=== PATIENT | female | born 1965 | race Caucasian/White ===

== ENCOUNTER → 2017-05-27 | Outpatient (CLI) | payer MEDICARE, BC ==
--- NOTE | 2017-05-28 09:43 | MR ---
EXAMINATION TYPE: MR brain wo/w con DATE OF EXAM: 05/27/2017 COMPARISON: NONE HISTORY: Multiple sclerosis TECHNIQUE: Multiplanar, multisequence images of the brain and brainstem is performed without and with utilizing 8 mL intravenous Gadavist gadolinium contrast. Demyelinating disease protocol with additional Sagitt al Flair sequence performed. FINDINGS: T2 Lesions Present : Yes Approximate Number of Lesions: 1 right cerebellar, at least 20 on the right as well as at least multi ple periventricular radially oriented white matter lesions, and at least 16 on the left as well as mu ltiple periventricular radially oriented white matter lesions. Locations Identified : Pericallosal, periventricular, juxtacortical, and infratentorial no lesions ar e seen within the brainstem or proximal visualized spinal cord. Size of Reference Lesion(s): 1. Right frontal lobe: 1.0 cm x 0.8 cm x 0.7 cm on axial series 501 image 24 and sagittal i series 60 1 image 20 2. Left frontal lobe: 0.8 x 0.6 cm x 0.9 cm on axial series 501 image 19 and sagittal series 601 imag e 10 Enhancing Lesion(s) Present: No T1 Hypointense Lesion(s) Present: Yes Diffusion weighted images demonstrate no evidence of a recent infarct or other diffusion abnormality. There is no worrisome extra-axial fluid collection. The ventricular system and cisternal spaces ar e normal in size and appearance. The brain volume is age appropriate. Midline structures demonstrate normal morphology. The craniocervical junction appears within normal limits. Post contrast images demonstrate no abnormal enhancement. The dural venous sinuses appear pa tent. The visualized sinuses are clear and the globes are intact. IMPRESSION: Numerous pericallosal, periventricular, juxtacortical, and singular infratentorial white matter plaqu es, in keeping with the patient's history of multiple sclerosis. No enhancing lesions or lesions rest ricting diffusion are seen to indicate active demyelination.
--- NOTE | 2017-05-28 09:51 | MR ---
EXAMINATION TYPE: MR thoracic spine wo con DATE OF EXAM: 05/27/2017 COMPARISON: NONE HISTORY: Multiple sclerosis TECHNIQUE: Multiplanar, multisequence images of the thoracic spine were acquired without intravenous contrast. D iffusion weighted imaging was performed. FINDINGS: The exam is somewhat limited secondary to patient motion. Right paracentral disc herniation is seen at T8-T9 effacing the ventral subarachnoid space and impres sing upon the thoracic cord. No abnormal cord signal is appreciated. There is resultant mild spinal c anal stenosis and mild neural foraminal narrowing. At T12-L1 there is a left paracentral disc herniat ion creating mild spinal canal stenosis without neural foraminal narrowing. The remaining intervertebral discs of the thoracic spine maintain normal hydration with no evidence o f degenerative disc disease or focal herniation. The thoracic cord maintains normal signal throughout without evidence of T2 hyperintense plaques in t his patient with a history of multiple sclerosis. Bone marrow signal is unremarkable other than small T6 and T7 subcentimeter T2/T1 hyperintense vertebral body hemangiomas. IMPRESSION: 1. Small right paracentral disc herniation at T8-T9 creating mild spinal canal stenosis and impressio n upon the spinal cord without abnormal spinal cord signal to suggest edema or myelomalacia. 2. Left paracentral disc herniation at T12-L1 creating mild spinal canal stenosis without neural fora pedro narrowing. 3. No abnormal spinal cord signal to suggest demyelinating lesion.
== END | disposition home or self-care (01) ==
LOC: RADMRIMAIN 11:59
PROVIDERS: ATTEND Psychiatry & Neurology Neurology
DX: M48.04 Spinal stenosis, thoracic region (principal); M51.25 Other intervertebral disc displacement, thoracolumbar region; M99.73 Connective tissue and disc stenosis of intervertebral foramina of lumbar region; R93.0 Abnormal findings on diagnostic imaging of skull and head, not elsewhere classified; G35 Multiple sclerosis
CPT/HCPCS: 70553; 72146; A9581

== ENCOUNTER → 2017-08-15 | Outpatient (CLI) | payer MEDICARE, BC ==
[2017-08-15 09:51] LABS: Basophils # (A) 0.1 k/uL (0-0.2); Basophils % (A) 2 %; CH 28.8; CHCM 32.4; Eosinophils # (A) 0.4 k/uL (0-0.7); Eosinophils % (A) 7 %; HCT 43.6 % (34.0-46.0); HGB 13.8 gm/dL (11.4-16.0); Luc # (Auto) 0.12; Luc % (Auto) 2; Lymphocytes # (A) 1.5 k/uL (1.0-4.8); Lymphocytes % (A) 29 %; MCH 28.3 pg (25.0-35.0); MCHC 31.7 g/dL (31.0-37.0); MCV 89.2 fL (80.0-100.0); Mean Platelet Volume 7.3; Monocytes # (A) 0.4 k/uL (0-1.0); Monocytes % (A) 7 %; Neutrophils # (A) 2.7 k/uL (1.3-7.7); Neutrophils % (A) 53 %; RBC 4.89 m/uL (3.80-5.40); RDW 14.3 % (11.5-15.5); WBC 5.1 k/uL (3.8-10.6); WBC (Perox) 5.02
[2017-08-15 10:26] LABS: ALT 38 U/L (9-52); AST 23 U/L (14-36)
== END | disposition home or self-care (01) ==
LOC: LABWHC1 08:37
PROVIDERS: ATTEND Psychiatry & Neurology Neurology
DX: G35 Multiple sclerosis (principal)
CPT/HCPCS: 36415; 84450; 84460; 85025; 86480

== ENCOUNTER → 2017-10-22 | Outpatient (CLI) | payer MEDICARE, BC ==
--- NOTE | 2017-10-22 12:09 | BD ---
EXAMINATION TYPE: MG DEXA axial skeleton. DATE OF EXAM: 10/22/2017 COMPARISON: 2001 CLINICAL HISTORY: Postmenopausal female. Osteoporosis screening. Height: 5'6 Weight: 195 FRAX RISK QUESTIONS: Alcohol (3 or more units per day): no Family History (Parent hip fracture): no Glucocorticoids (More than 3mos): no (Ex: prednisone, prednisolone, methylprednisolone, dexamethasone, and hydrocortisone). History of Fracture in Adulthood: no Secondary Osteoporosis: 1. Type 1 Diabetes: no 2. Hyperthyroidism: no 3. Menopause before 45: no 4. Malnutrition: no 5. Chronic liver disease: no Rheumatoid Arthritis: no Current Tobacco Use: no RISK FACTORS HISTORY OF: Active: Diet low in dairy products/other sources of calcium: Postmenopausal woman: Frequent falls: MEDICATIONS: Prednisone or other steroids: How Long: back to back 3 moths ago Thyroid Medications: Which medication: Synthroid How Lon years Additional Medications: bladder, spasms, depression, cholesterol, liness, albuterol Additional History: pt has MS EXAM MEASUREMENTS: Bone mineral densitometry was performed using the [employer] System. Bone mineral density as measured about the Lumbar spine is: ----- L1-L4(G/cm2): 1.145 T Score Values are as follows: ----- L2: -0.1 ----- L3: -0.1 ----- L4: -0.9 ----- L1-L4: -0.3 Bone mineral density has: Decreased -10.8% since study of: 07/07/2002 Bone mineral density about the R hip (g/cm2): 0.893 Bone mineral density about the L hip (g/cm2): 0.902 T Score values are as follows: -----R Neck: -1.0 -----L Neck: -1.0 -----R Total: -0.6 -----L Total: -0.7 Bone mineral density has: Decreased -7.4% since study of: 07/07/2002 IMPRESSION: Normal (Values between +1 and -1 indicate normal bone mass). Note values approach osteopenia for the bilateral hips. Consider repeating this study in 5 years or sooner if there is some new clinical lico cation. NOTE: T-SCORE=SD OF THE YOUNG ADULT MEAN.
== END | disposition home or self-care (01) ==
LOC: RADBDWWP 10:37
PROVIDERS: ATTEND Obstetrics & Gynecology
DX: Z13.820 Encounter for screening for osteoporosis (principal)
CPT/HCPCS: 77080

== ENCOUNTER → 2018-02-06 | Outpatient (CLI) | payer MEDICARE, BC ==
[2018-02-06 08:54] LABS: ALT 38 U/L (9-52); AST 26 U/L (14-36); Blood Urea Nitrogen 11 mg/dL (7-17); Uric Acid 5.5 mg/dL (3.7-7.4)
== END | disposition home or self-care (01) ==
LOC: LABWHC1 08:29
PROVIDERS: ATTEND Podiatrist
DX: M10.9 Gout, unspecified (principal)
CPT/HCPCS: 36415; 82565; 84450; 84460; 84520; 84550

== ENCOUNTER → 2018-02-25 | Outpatient (CLI) | payer MEDICARE, BC ==
[2018-02-25 09:37] LABS: Blood Urea Nitrogen 16 mg/dL (7-17)
[2018-02-25 16:39] LABS: Rheumatoid Factor 8 IU/mL (0-15)
[2018-02-26 11:22] LABS: ANA Pattern Speckled
[2018-02-26 12:20] LABS: HLA B27 POSITIVE
== END | disposition home or self-care (01) ==
LOC: LABWHC1 08:39
PROVIDERS: ATTEND Psychiatry & Neurology Neurology
DX: M10.9 Gout, unspecified (principal); M06.9 Rheumatoid arthritis, unspecified; G35 Multiple sclerosis; Z13.89 Encounter for screening for other disorder
CPT/HCPCS: 36415; 82565; 84520; 84550; 85652; 86038; 86039; 86431; 86812

== ENCOUNTER → 2018-02-27 | Outpatient (CLI) | payer MEDICARE, BC ==
[2018-02-27 11:51] LABS: Creatinine 24 Hour,Urine 797.5 mg/24hr (800.0-1800.0)
== END | disposition home or self-care (01) ==
LOC: LABWHC1 09:26
PROVIDERS: ATTEND Psychiatry & Neurology Neurology
DX: G35 Multiple sclerosis (principal); Z13.89 Encounter for screening for other disorder
CPT/HCPCS: 36415; 82575

== ENCOUNTER 2018-03-26 10:01 | Emergency (ER) | payer MEDICARE, BC ==
[2018-03-26 10:16] VITALS: RESP 18
--- NOTE | 2018-03-26 10:33 | ED ---
General Adult HPI - General Chief complaint: Fall Stated complaint: Fall Time Seen by Provider: 03/26/18 10:10 Source: patient, RN notes reviewed Mode of arrival: ambulatory Limitations: no limitations - History of Present Illness Initial comments: This is a 52-year-old female who presents to the emergency room with a past medical history significant for rheumatoid arthritis and multiple sclerosis. Patient comes in today because she fell yesterday and hit her right jaw on coffee table. Patient states a few hours after that she had some double vision that lasted about 1-1/2 hours. Patient states today she has a diffuse headache and some nausea. Patient denies any new numbness or weakness. Patient states she has some neck pain it's bilaterally. Is not centrally located. Patient denies any recent fever or chills. Patient denies any chest pain difficulty breathing or shortness of breath. Patient denies any other injury. Patient denies any blurred vision or double vision today. Patient denies any . Patient states she often does get headaches but she was concerned about the double vision with the headache today. - Related Data Home Medications Medication Instructions Recorded Confirmed Ampyra Er 10 mg PO DAILY 03/26/18 03/26/18 Calcium Carbonate [Calcium] 600 mg PO DAILY 03/26/18 03/26/18 Cholecalciferol [Vitamin D3] 1,000 unit PO DAILY 03/26/18 03/26/18 Cinnamon Bark [Cinnamon] 500 mg PO DAILY 03/26/18 03/26/18 Ezetimibe [Zetia] 10 mg PO DAILY 03/26/18 03/26/18 Fluticasone/Salmeterol [Advair 1 inhalation PO BID 03/26/18 03/26/18 250-50 Diskus] Levothyroxine Sodium 25 mcg PO DAILY 03/26/18 03/26/18 Linaclotide [Linzess] 290 mcg PO DAILY 03/26/18 03/26/18 Magnesium 200 mg PO DAILY 03/26/18 03/26/18 Sertraline [Zoloft] 50 mg PO DAILY 03/26/18 03/26/18 Teriflunomide [Aubagio] 7 mg PO DAILY 03/26/18 03/26/18 Tolterodine ER [Detrol LA] 4 mg PO DAILY 03/26/18 03/26/18 Allergies Allergy/AdvReac Type Severity Reaction Status Date / Time oxybutynin [From Ditropan] Allergy Rash/Hives Verified 03/26/18 10:41 Penicillins Allergy Anaphylaxis Verified 03/26/18 10:40 propranolol [From Inderal LA] Allergy Rash/Hives Verified 03/26/18 10:40 pseudoephedrine Allergy Anaphylaxis Verified 03/26/18 10:40 [From Sudafed] sulfamethoxazole Allergy Rash/Hives Verified 03/26/18 10:41 [From Bactrim] trimethoprim [From Bactrim] Allergy Rash/Hives Verified 03/26/18 10:41 Review of Systems ROS Statement: Those systems with pertinent positive or pertinent negative responses have been documented in the HPI. ROS Other: All systems not noted in ROS Statement are negative. Past Medical History Past Medical History: Rheumatoid Arthritis (RA) Additional Past Medical History / Comment(s): ms History of Any Multi-Drug Resistant Organisms: None Reported Past Surgical History: Cholecystectomy, Uterine Ablation Additional Past Surgical History / Comment(s): d & c Past Psychological History: Anxiety Smoking Status: Never smoker Past Alcohol Use History: None Reported Past Drug Use History: None Reported General Exam - General Exam Comments Initial Comments: GENERAL: Patient is well-developed and well-nourished. Patient is nontoxic and well- hydrated and is in mild distress. ENT: Neck is soft and supple. No significant lymphadenopathy is noted. Oropharynx is clear. Moist mucous membranes. Neck has full range of motion without eliciting any pain. Patient did have some tenderness to the paraspinous muscles of the neck. No cervical spine tenderness. EYES: The sclera were anicteric and conjunctiva were pink and moist. Extraocular movements were intact and pupils were equal round and reactive to light. Eyelids were unremarkable. PULMONARY: Unlabored respirations. Good breath sounds bilaterally. No audible rales rhonchi or wheezing was noted. CARDIOVASCULAR: There is a regular rate and rhythm without any murmurs gallops or rubs. ABDOMEN: Soft and nontender with normal bowel sounds. SKIN: Skin is clear with no lesions or rashes and otherwise unremarkable. NEUROLOGIC Patient is alert and oriented x3. Cranial nerves II through XII are grossly intact. Motor and sensory are also intact. Normal speech, volume and content. Symmetrical smile. MUSCULOSKELETAL: Normal extremities with adequate strength and full range of motion. No lower extremity swelling or edema. No calf tenderness. LYMPHATICS: No significant lymphadenopathy is noted PSYCHIATRIC: Normal psychiatric evaluation. Normal interpersonal interactions appears functionally intact in deals appropriately with others. No signs of depression. No signs of anxiety. Limitations: no limitations Course Vital Signs 03/26/18 10:11 Temperature 98.3 F Pulse Rate 82 Respiratory 18 Rate Blood Pressure 152/79 O2 Sat by Pulse 100 Oximetry Medical Decision Making - Medical Decision Making CT of the brain and C-spine showed no acute abnormality. Patient did not want anything for her headache. Disposition Clinical Impression: Closed head injury Disposition: HOME SELF-CARE Condition: Good Instructions: Head Injury (ED) Is patient prescribed a controlled substance at d/c from ED?: No Referrals: Felipe Cantu DO [Primary Care Provider] - 1-2 days Time of Disposition: 11:52
--- NOTE | 2018-03-26 11:28 | CT ---
EXAMINATION TYPE: CT brain cspine wo con DATE OF EXAM: 03/26/2018 COMPARISON: MR dated 05/27/2017 HISTORY: Fall, bruising under chin, pain, Rt jaw. Head and neck pain. CT DLP: 1395.5 mGycm. Automated Exposure Control for Dose Reduction was Utilized. TECHNIQUE: CT scan of the head and cervical spine are performed without contrast. FINDINGS: There is no acute intracranial hemorrhage, mass effect, or midline shift identified. Foc al area of hypoattenuation is seen within the right frontal lobe however this corresponds to a white matter lesion is seen on the prior MRI dated 05/27/2017. Other scattered areas of hypoattenuation with in the pericallosal and periventricular white matter representing known underlying multiple sclerosis and demyelinating disease. Vogel-white matter interface is overall maintained with no new gross evide nce of acute territorial infarct. The ventricles and sulci are within normal limits in size. The alfonso bes are intact and the visualized sinuses are clear. Cervical spine is visualized in its entirety from C1 through upper thoracic levels and demonstrates s atisfactory alignment without evidence of acute fracture or dislocation. Prevertebral soft tissue ap pears within normal limits. The C1-C2 articulation is unremarkable. Mild multilevel degenerative di sc disease is seen. No gross evidence of spinal canal stenosis although disc osteophyte complex at C6 -C7 is seen that minimally narrows the ventral subarachnoid space. IMPRESSION: 1. There is no acute fracture or dislocation evident in the cervical spine. Mild multilevel degenerat jamar disc disease. 2. No acute intracranial hemorrhage, mass effect, or midline shift is seen. 3. White matter changes including with the patient's history of multiple sclerosis as seen on the chris or MR dated 05/27/2017.
[2018-03-26 12:12] VITALS: BP 145/83; PULSE 78; TEMP 98.2
== END 2018-03-26 12:05 | disposition home or self-care (01) ==
LOC: EC 10:01
DX: S09.90XA Unspecified injury of head, initial encounter (principal); M54.2 Cervicalgia; R11.0 Nausea; M06.9 Rheumatoid arthritis, unspecified; G35 Multiple sclerosis; F41.9 Anxiety disorder, unspecified; Z90.49 Acquired absence of other specified parts of digestive tract; Z98.890 Other specified postprocedural states; Z79.51 Long term (current) use of inhaled steroids; Z79.899 Other long term (current) drug therapy; Z88.0 Allergy status to penicillin; Z88.1 Allergy status to other antibiotic agents; Z88.2 Allergy status to sulfonamides; Z88.8 Allergy status to other drugs, medicaments and biological substances; W01.190A Fall on same level from slipping, tripping and stumbling with subsequent striking against furniture, initial encounter
CPT/HCPCS: 70450; 72125; 99283

== ENCOUNTER → 2018-06-08 | Outpatient (CLI) | payer MEDICARE, BC ==
[2018-06-08 10:19] LABS: C Reactive Protein 5.1 mg/L (<10.0)
== END | disposition home or self-care (01) ==
LOC: LABWHC1 08:49
PROVIDERS: ATTEND Internal Medicine Rheumatology
DX: E78.5 Hyperlipidemia, unspecified (principal); M12.9 Arthropathy, unspecified; R76.8 Other specified abnormal immunological findings in serum; Z15.89 Genetic susceptibility to other disease
CPT/HCPCS: 36415; 80061; 85652; 86140; 86431

== ENCOUNTER → 2018-09-25 | Outpatient (CLI) | payer MEDICARE, BC ==
--- NOTE | 2018-10-01 15:46 | MM ---
Reason for exam: screening (asymptomatic). Last mammogram was performed 1 year and 3 months ago. History: Family history of breast cancer in grandmother. Cyst aspiration of the left breast, August 06, 2011. MG 3D Screening Mammo W/Cad Bilateral CC and MLO view(s) were taken. Prior study comparison: July 10, 2017, bilateral MG 3d screening mammo w/cad. January 17, 2016, bilateral MG screening mammo w CAD. The breast tissue is extremely dense which could obscure a lesion on mammography. There is a new 3 mm group of calcifications in the lower outer quadrant of the left breast at middle depth. ASSESSMENT: Incomplete: need additional imaging evaluation, BI-RAD 0 RECOMMENDATION: Special view mammogram of the left breast.
== END | disposition home or self-care (01) ==
LOC: RADMAMWWP 13:25
PROVIDERS: ATTEND Obstetrics & Gynecology
DX: Z12.31 Encounter for screening mammogram for malignant neoplasm of breast (principal); Z80.3 Family history of malignant neoplasm of breast
CPT/HCPCS: 77063; 77067

== ENCOUNTER → 2018-10-12 | Outpatient (CLI) | payer MEDICARE, BC ==
--- NOTE | 2018-10-13 09:39 | MM ---
Reason for exam: additional evaluation requested from abnormal screening. Last mammogram was performed 1 month ago. History: Family history of breast cancer in grandmother. Cyst aspiration of the left breast, August 06, 2011. Physical Findings: Nurse Summary: 1cm nodule in the left breast at 11 o'clock (nurse mj). MG 3D Work Up W/Cad LT CC with magnification, ML with magnification, and ML view(s) were taken of the left breast. Prior study comparison: September 25, 2018, bilateral MG 3d screening mammo w/cad. July 10, 2017, bilateral MG 3d screening mammo w/cad. The breast tissue is heterogeneously dense. This may lower the sensitivity of mammography. Somewhat rounded calcifications left breast. 6 month follow up recommended. These results were verbally communicated with the patient and result sheet given to the patient on 10/12/18. ASSESSMENT: Incomplete: need additional imaging evaluation, BI-RAD 0 RECOMMENDATION: Ultrasound of the left breast. Manage patient on a clinical basis.
--- NOTE | 2018-10-13 09:40 | USB ---
Reason for exam: additional evaluation requested from abnormal screening. History: Family history of breast cancer in grandmother. Cyst aspiration of the left breast, August 06, 2011. US Breast Workup Limited LT Left limited breast ultrasound including focal area of concern, retroareolar and axilla demonstrates no cystic or solid lesion seen. These results were verbally communicated with the patient and result sheet given to the patient on 10/12/18. ASSESSMENT: Probably benign, BI-RAD 3 RECOMMENDATION: Follow-up diagnostic mammogram of the left breast in 6 months.
== END | disposition home or self-care (01) ==
LOC: RADMAMWWP 13:28
PROVIDERS: ATTEND Obstetrics & Gynecology
DX: R92.8 Other abnormal and inconclusive findings on diagnostic imaging of breast (principal)
CPT/HCPCS: 77065; 76642; G0279; 77061

== ENCOUNTER → 2019-02-24 | Outpatient (CLI) | payer MEDICARE, BC ==
[2019-02-24 09:40] LABS: Basophils # (A) 0.1 k/uL (0-0.2); Basophils % (A) 2 %; Eosinophils # (A) 0.2 k/uL (0-0.7); Eosinophils % (A) 4 %; HCT 40.3 % (34.0-46.0); HGB 13.1 gm/dL (11.4-16.0); Lymphocytes % (A) 37 %; MCH 28.4 pg (25.0-35.0); MCHC 32.6 g/dL (31.0-37.0); MCV 87.2 fL (80.0-100.0); Mean Platelet Volume 7.3; Monocytes # (A) 0.4 k/uL (0-1.0); Monocytes % (A) 8 %; Neutrophils # (A) 2.6 k/uL (1.3-7.7); Neutrophils % (A) 48 %; Platelet Count 273 k/uL (150-450); RBC 4.63 m/uL (3.80-5.40); RDW 14.6 % (11.5-15.5); WBC 5.4 k/uL (3.8-10.6)
== END | disposition home or self-care (01) ==
LOC: LABWHC1 08:32
PROVIDERS: ATTEND Psychiatry & Neurology Neurology
DX: G35 Multiple sclerosis (principal)
CPT/HCPCS: 36415; 85025

== ENCOUNTER → 2019-04-12 | Outpatient (CLI) | payer MEDICARE, BC ==
--- NOTE | 2019-04-13 09:13 | MM ---
Reason for exam: follow-up at short interval from prior study. Last mammogram was performed 6 months ago. History: Patient is postmenopausal. Family history of premenopausal breast cancer in maternal grandmother at age 48. Cyst aspiration of the left breast, August 06, 2011. Physical Findings: Nurse did not find any significant physical abnormalities on exam. MG 3D Diag Mammo W/Cad LT CC and MLO view(s) were taken of the left breast. Prior study comparison: October 12, 2018, left breast MG 3d work up w/cad LT. September 25, 2018, bilateral MG 3d screening mammo w/cad. The breast tissue is heterogeneously dense. This may lower the sensitivity of mammography. There are benign appearing coarse calcifications in the left breast at 6 o'clock. No significant new findings when compared with prior studies. ASSESSMENT: Benign, BI-RAD 2 RECOMMENDATION: Return to routine screening mammogram schedule for both breasts.
== END | disposition home or self-care (01) ==
LOC: RADMAMWWP 08:55
PROVIDERS: ATTEND Family Medicine
DX: R92.1 Mammographic calcification found on diagnostic imaging of breast (principal)
CPT/HCPCS: 77065; G0279; 77061

== ENCOUNTER → 2019-06-30 | Outpatient (CLI) | payer MEDICARE, BC ==
[2019-06-30 14:01] LABS: Basophils # (A) 0.1 k/uL (0-0.2); Basophils % (A) 2 %; Eosinophils # (A) 0.2 k/uL (0-0.7); Eosinophils % (A) 3 %; HCT 43.9 % (34.0-46.0); HGB 13.8 gm/dL (11.4-16.0); Lymphocytes # (A) 2.4 k/uL (1.0-4.8); Lymphocytes % (A) 37 %; MCH 28.4 pg (25.0-35.0); MCHC 31.5 g/dL (31.0-37.0); MCV 89.9 fL (80.0-100.0); Mean Platelet Volume 6.9; Monocytes # (A) 0.5 k/uL (0-1.0); Monocytes % (A) 7 %; Neutrophils % (A) 48 %; Platelet Count 302 k/uL (150-450); RBC 4.88 m/uL (3.80-5.40); WBC 6.3 k/uL (3.8-10.6)
[2019-06-30 18:36] LABS: ALT 29 U/L (8-44); AST 22 U/L (13-35)
== END | disposition home or self-care (01) ==
LOC: LABWHC1 11:22
PROVIDERS: ATTEND Psychiatry & Neurology Neurology
DX: G35 Multiple sclerosis (principal)
CPT/HCPCS: 36415; 84450; 84460; 85025

== ENCOUNTER → 2019-09-02 | Outpatient (CLI) | payer MEDICARE, BC ==
--- NOTE | 2019-09-02 14:47 | MR ---
EXAMINATION TYPE: MR brain wo con DATE OF EXAM: 09/02/2019 COMPARISON: MRI brain May 27, 2017 HISTORY: MS relapse TECHNIQUE: Multiplanar, multisequence imaging of the brain and brainstem is performed without IV cont rast. Demyelinating disease protocol. FINDINGS: There is redemonstration of T2 hyperintense lesion somewhat confluent in appearance with p rominent periventricular levels. For reference posterior left frontal coronal radiata lesion axial im age 20 and sagittal image 13 measures 8 x 5 x 8 mm not significantly changed in size or appearance fr om prior MRI. There is also stable high right frontal 8 x 10 x 6 mm lesion axial image 25 and sagitta l image 23. Diffusion weighted images demonstrate no evidence of a recent infarct or other diffusion abnormality. There is no worrisome extra-axial fluid collection. The ventricular system and cisternal spaces are normal in size and appearance. The brain volume is age appropriate. Midline structures demonstrate normal morphology. The craniocervical junction appears within normal limits. Normal vascular flow voids are present. The visualized sinuses are clear and the globes are e longated by artifact similar to prior. IMPRESSION: Moderate nonspecific white matter changes with only appreciated change is less well-visua lized possible right cerebellar lesion. No definitive new lesions seen.
--- NOTE | 2019-09-02 14:53 | MR ---
EXAMINATION TYPE: MR thoracic spine wo con DATE OF EXAM: 09/02/2019 COMPARISON: MRI thoracic spine May 27, 2017 HISTORY: MS relapse TECHNIQUE: Multiplanar, multisequence imaging of thoracic spine is performed without contrast demyeli nating disease protocol. FINDINGS: Spinal cord redemonstrates normal course and signal as it courses the thoracic spine. There is stable slightly more prominent thickening or AP enlargement lower thoracic level presumed normal variant. Bone marrow signal intensity is preserved. Vertebral body heights and alignment are satisfac tory. Mild multilevel anterior spurring redemonstrated. There is persistent right paracentral disc he rniation effacing anterolateral thecal sac sagittal image 9 at T8-T9 level, this encroaches along ant erolateral margin of spinal cord axial image 20 similar to prior. There is additional left paracentra l posterior disc herniation effacing the anterior thecal sac at T12-L1 level sagittal image 8 and axi al image 3 not significant change from prior. Review of the axial images shows no new significant disc herniations or definitive new areas of abnor mal cord signal. There is suspected thin-walled roughly 1 cm cyst or cystic lesion posterior right he patic lobe axial image 8 better seen on current study versus prior. IMPRESSION: No evidence of demyelinating disease involvement in the thoracic spinal cord. Stable dis c herniations T8-T9 and T12-L1 levels noted.
== END | disposition home or self-care (01) ==
LOC: RADMRIMAIN 13:12
PROVIDERS: ATTEND Psychiatry & Neurology Neurology
DX: G35 Multiple sclerosis (principal)
CPT/HCPCS: 70551; 72146

== ENCOUNTER → 2019-09-29 | Outpatient (CLI) | payer MEDICARE, BC ==
[2019-09-29 09:10] LABS: Basophils # (A) 0.1 k/uL (0-0.2); Basophils % (A) 2 %; Eosinophils # (A) 0.2 k/uL (0-0.7); Eosinophils % (A) 3 %; HCT 44.3 % (34.0-46.0); HGB 14.5 gm/dL (11.4-16.0); Lymphocytes # (A) 1.6 k/uL (1.0-4.8); Lymphocytes % (A) 29 %; MCHC 32.7 g/dL (31.0-37.0); MCV 88.8 fL (80.0-100.0); Mean Platelet Volume 7.6; Monocytes # (A) 0.3 k/uL (0-1.0); Monocytes % (A) 6 %; Neutrophils # (A) 3.2 k/uL (1.3-7.7); Neutrophils % (A) 58 %; Platelet Count 262 k/uL (150-450); RBC 4.99 m/uL (3.80-5.40); RDW 12.7 % (11.5-15.5); WBC 5.6 k/uL (3.8-10.6)
[2019-09-29 16:38] LABS: ALT 35 U/L (8-44); AST 23 U/L (13-35)
== END | disposition home or self-care (01) ==
LOC: LABWHC1 08:30
PROVIDERS: ATTEND Psychiatry & Neurology Neurology
DX: G35 Multiple sclerosis (principal)
CPT/HCPCS: 36415; 84450; 84460; 85025

== ENCOUNTER → 2020-02-14 | Outpatient (CLI) | payer MEDICARE, BC ==
[2020-02-14 11:12] LABS: Basophils # (A) 0.1 k/uL (0-0.2); Basophils % (A) 1 %; Eosinophils # (A) 0.1 k/uL (0-0.7); Eosinophils % (A) 2 %; HCT 43.6 % (34.0-46.0); HGB 13.6 gm/dL (11.4-16.0); Lymphocytes # (A) 1.9 k/uL (1.0-4.8); Lymphocytes % (A) 34 %; MCH 27.9 pg (25.0-35.0); MCHC 31.3 g/dL (31.0-37.0); MCV 89.1 fL (80.0-100.0); Mean Platelet Volume 7.2; Monocytes # (A) 0.3 k/uL (0-1.0); Monocytes % (A) 5 %; Neutrophils % (A) 56 %; Platelet Count 300 k/uL (150-450); RDW 12.8 % (11.5-15.5); WBC 5.4 k/uL (3.8-10.6)
[2020-02-14 11:25] LABS: Appearance,Urine Clear (Clear); Bilirubin,Urine Negative (Negative); Blood,Urine Negative (Negative); Color,Urine Light Yellow; Glucose,Urine (UA) Negative (Negative); Ketones,Urine Negative (Negative); Leukocyte Esterase,Urine Small (Negative); Mucus,Urine Rare /hpf; Nitrite,Urine Negative (Negative); Protein,Urine Negative (Negative); RBC,Urine 1 /hpf (0-5); Specific Gravity,Urine 1.013 (1.001-1.035); Squamous Epithelial Cell,Urine 1 /hpf (0-4); Urobilinogen,Urine <2.0 mg/dL (<2.0); WBC,Urine 2 /hpf (0-5)
[2020-02-14 17:22] LABS: Albumin 4.9 g/dL (3.80-4.90); Albumin/Globulin Ratio 2.33 (1.60-3.17); Anion Gap 7.6 mmol/L (4.00-12.00); BUN/Creat Ratio 24.29 Ratio (12.00-20.00); Calcium 9.7 mg/dL (8.7-10.3); Carbon Dioxide 29.4 mmol/L (21.6-31.8); Globulin 2.1 g/dL (1.6-3.3); Non-African American GFR(CKD) 97.5 (60.0-200.0); Potassium 4.5 mmol/L (3.5-5.5); Total Bilirubin 0.3 mg/dL (0.2-1.2)
[2020-02-14 20:44] LABS: Hepatitis B Surface AB- Quant 3.5 mIU/mL; Hepatitis B Surface Antibody Non-Reactive (Non-Reactive); Hepatitis B Surface Antigen Non-Reactive (Non-Reactive)
== END | disposition home or self-care (01) ==
LOC: LABWHC1 09:24
PROVIDERS: ATTEND Psychiatry & Neurology Neurology
DX: Z51.81 Encounter for therapeutic drug level monitoring (principal); Z79.899 Other long term (current) drug therapy; G35 Multiple sclerosis
CPT/HCPCS: 36415; 80053; 81001; 85025; 86704; 86706; 87086; 87340

== ENCOUNTER → 2020-05-01 | Outpatient (CLI) | payer MEDICARE, BC ==
[2020-05-01 11:58] LABS: Basophils # (A) 0.1 k/uL (0-0.2); Basophils % (A) 1 %; Eosinophils # (A) 0.2 k/uL (0-0.7); Eosinophils % (A) 2 %; HCT 44.9 % (34.0-46.0); HGB 14.2 gm/dL (11.4-16.0); Lymphocytes # (A) 1.2 k/uL (1.0-4.8); Lymphocytes % (A) 19 %; MCH 28.3 pg (25.0-35.0); MCHC 31.7 g/dL (31.0-37.0); MCV 89.3 fL (80.0-100.0); Mean Platelet Volume 8.4; Monocytes # (A) 0.4 k/uL (0-1.0); Monocytes % (A) 7 %; Neutrophils # (A) 4.4 k/uL (1.3-7.7); Neutrophils % (A) 69 %; Platelet Count 354 k/uL (150-450); RBC 5.03 m/uL (3.80-5.40); RDW 13.5 % (11.5-15.5); WBC 6.4 k/uL (3.8-10.6)
[2020-05-01 16:17] LABS: African American GFR (CKD) 96.2 (60.0-200.0); Albumin 4.8 g/dL (3.80-4.90); Calcium 9.8 mg/dL (8.7-10.3); Globulin 2.4 g/dL (1.6-3.3); Potassium 4.3 mmol/L (3.5-5.5); Total Bilirubin 0.4 mg/dL (0.2-1.2); Total Protein 7.2 g/dL (6.2-8.2)
== END | disposition home or self-care (01) ==
LOC: LABWHC1 11:13
PROVIDERS: ATTEND Psychiatry & Neurology Neurology
DX: G35 Multiple sclerosis (principal); Z79.899 Other long term (current) drug therapy
CPT/HCPCS: 36415; 80053; 85025

== ENCOUNTER → 2020-09-12 | Outpatient (CLI) | payer MEDICARE, BC ==
[2020-09-12 11:15] LABS: Basophils # (A) 0.1 k/uL (0-0.2); Basophils % (A) 2 %; Eosinophils # (A) 0.2 k/uL (0-0.7); Eosinophils % (A) 4 %; HCT 39.9 % (34.0-46.0); HGB 13.8 gm/dL (11.4-16.0); Lymphocytes # (A) 1.6 k/uL (1.0-4.8); Lymphocytes % (A) 28 %; MCH 30.5 pg (25.0-35.0); MCHC 34.5 g/dL (31.0-37.0); MCV 88.4 fL (80.0-100.0); Monocytes # (A) 0.4 k/uL (0-1.0); Monocytes % (A) 8 %; Neutrophils # (A) 3.2 k/uL (1.3-7.7); Neutrophils % (A) 57 %; Platelet Count 341 k/uL (150-450); RBC 4.51 m/uL (3.80-5.40); RDW 12.8 % (11.5-15.5); WBC 5.6 k/uL (3.8-10.6)
[2020-09-12 11:20] LABS: Appearance,Urine Cloudy (Clear); Bacteria,Urine Rare /hpf; Bilirubin,Urine Negative (Negative); Blood,Urine Negative (Negative); Color,Urine Light Yellow; Glucose,Urine (UA) Negative (Negative); Ketones,Urine Negative (Negative); Leukocyte Esterase,Urine Large (Negative); Mucus,Urine Rare /hpf; Nitrite,Urine Negative (Negative); PH, Urine 5.5 (5.0-8.0); Protein,Urine Negative (Negative); RBC,Urine 2 /hpf (0-5); Specific Gravity,Urine 1.014 (1.001-1.035); Squamous Epithelial Cell,Urine 1 /hpf (0-4); Urobilinogen,Urine <2.0 mg/dL (<2.0); WBC,Urine 76 /hpf (0-5)
[2020-09-12 20:17] LABS: African American GFR (CKD) 118.1 (60.0-200.0); Albumin 4.8 g/dL (3.80-4.90); Albumin/Globulin Ratio 2.29 (1.60-3.17); Anion Gap 6.9 mmol/L (4.00-12.00); Calcium 9.7 mg/dL (8.7-10.3); Carbon Dioxide 28.1 mmol/L (21.6-31.8); Globulin 2.1 g/dL (1.6-3.3); Non-African American GFR(CKD) 101.9 (60.0-200.0); Potassium 4.4 mmol/L (3.5-5.5); Total Bilirubin 0.3 mg/dL (0.2-1.2); Total Protein 6.9 g/dL (6.2-8.2)
== END | disposition home or self-care (01) ==
LOC: LABWHC1 10:04
PROVIDERS: ATTEND Psychiatry & Neurology Neurology
DX: G35 Multiple sclerosis (principal); R53.1 Weakness; Z51.81 Encounter for therapeutic drug level monitoring
CPT/HCPCS: 36415; 80053; 81001; 85025; 87086

== ENCOUNTER → 2020-10-12 | Outpatient (CLI) | payer MEDICARE, BC ==
--- NOTE | 2020-10-12 19:24 | MR ---
Thoracic spine MRI without contrast HISTORY: G 33, multiple sclerosis Multiplanar multisequence and postcontrast images obtained through the thoracic spine and contrast wa s not administered due to lack of IV access The degenerative disc changes are again noted, there is a slight spinal curvature. There is no signif icant spinal stenosis or significant foraminal encroachment. There is mild multilevel spondylosis wit h endplate discogenic marrow signal change. Thoracic cord signal is stable, question some increased s ignal within the thoracic cord distally, axial image #12 shows a similar appearance to prior exam, ar tifact is present however. There is some facet arthropathy changes at the lower spine. T8-9 shows a right paracentral disc herniation contacting the lateral margin of the thoracic cord sim ilar to prior exam. The posterior disc bulge at T12-L1 shows a similar appearance. T2 bright signal foci within the liver likely represent cysts seen incidentally IMPRESSION: There is not a significant change compared to prior exam.
--- NOTE | 2020-10-13 06:33 | MR ---
EXAMINATION TYPE: MR brain wo con DATE OF EXAM: 10/12/2020 COMPARISON: Prior MRI brain September 02, 2019 HISTORY: MS for 30 years, follow up, has gotten worse in the past year, weakness in legs, trouble wal travis. TECHNIQUE: Multiplanar, multisequence images of the brain and brainstem is performed without IV contrast, IV acc ess could not be obtained. Demyelinating disease protocol with additional Sagittal Flair sequence pe rformed. FINDINGS: T2 Lesions Present : Yes approximately 40-50 Approximate Number of Lesions: Difficult to accurately count due to confluent appearance to periventr icular level Locations Identified : Predominantly periventricular with some additional scattered lesions Size of Reference Lesion(s): 1. 9 x 7 x 6 mm on axial image 25 and sagittal image 22 high right frontal deep white matter stable 2 9 x 7 x 11 mm high right frontal subcortical lesion axial image 28 and sagittal image 22 stable. Enhancing Lesion(s) Present: n/a T1 Hypointense Lesion(s) Present: Yes Change from Prior: Stable Diffusion weighted images demonstrate no evidence of a recent infarct or other diffusion abnormality. There is no worrisome extra-axial fluid collection. Mild ventricular and sulcal prominence are demo nstrated. Midline structures redemonstrate some corpus callosal atrophy purchased particularly posterior body. The craniocervical junction appears within normal limits. Normal cerebral flow voids redemonstrated. Visualized sinuses remain grossly clear. Elongated appearance to both globes is redemonstrated. IMPRESSION: Moderate to borderline advanced nonspecific white matter changes likely on basis of known multiple sclerosis redemonstrated. No significant change from comparison MRI. Suboptimal as IV contr ast could not be given.
== END | disposition home or self-care (01) ==
LOC: RADMRIMAIN 14:16
PROVIDERS: ATTEND Psychiatry & Neurology Neurology
DX: R90.89 Other abnormal findings on diagnostic imaging of central nervous system (principal); G35 Multiple sclerosis
CPT/HCPCS: 70551; 72146

== ENCOUNTER → 2021-03-06 | Outpatient (CLI) | payer MEDICARE, BC ==
[2021-03-06 10:17] VITALS: BP 172/91; PULSE 81; RESP 16; TEMP 98.3
== END ==
LOC: PROCWHC3 10:03
PROVIDERS: ATTEND Internal Medicine Infectious Disease
DX: G35 Multiple sclerosis (principal); Z88.2 Allergy status to sulfonamides; Z88.0 Allergy status to penicillin; Z88.5 Allergy status to narcotic agent; Z88.8 Allergy status to other drugs, medicaments and biological substances

== ENCOUNTER → 2021-04-11 | Outpatient (CLI) | payer MEDICARE, BC ==
[2021-04-12 00:22] LABS: Hepatitis B Surface AB- Quant <3.5 mIU/mL; Hepatitis B Surface Antibody Non-Reactive (Non-Reactive); Hepatitis B Surface Antigen Non-Reactive (Non-Reactive); Hepatitis C IgG Antibody Non-Reactive (Non-Reactive)
== END | disposition home or self-care (01) ==
LOC: LABWHC1 08:12
PROVIDERS: ATTEND Psychiatry & Neurology Neurology
DX: G35 Multiple sclerosis (principal); Z79.899 Other long term (current) drug therapy
CPT/HCPCS: 36415; 86704; 86706; 86803; 87340

== ENCOUNTER → 2021-05-23 | Outpatient (CLI) | payer MEDICARE, BC ==
[2021-05-23 12:24] LABS: Amorphous Sediment,Urine Occasional /hpf; Appearance,Urine Turbid (Clear); Bacteria,Urine Occasional /hpf; Bilirubin,Urine Negative (Negative); Blood,Urine Negative (Negative); Calcium Oxalate Crystals,Urine Occasional /hpf; Color,Urine Light Yellow; Glucose,Urine (UA) Negative (Negative); Ketones,Urine Negative (Negative); Leukocyte Esterase,Urine Large (Negative); Mucus,Urine Rare /hpf; Nitrite,Urine Positive (Negative); PH, Urine 7.5 (5.0-8.0); Protein,Urine Negative (Negative); Specific Gravity,Urine 1.013 (1.001-1.035); Squamous Epithelial Cell,Urine 5 /hpf (0-4); Urobilinogen,Urine <2.0 mg/dL (<2.0); WBC,Urine 5 /hpf (0-5)
[2021-05-23 16:14] LABS: Basophils # (A) 0.01 X 10*3/uL (0.00-0.10); Basophils % (A) 0.2 %; Eosinophils # (A) 0.24 X 10*3/uL (0.04-0.35); Eosinophils % (A) 3.9 %; HGB 14.3 g/dL (12.0-15.0); Lymphocytes # (A) 0.76 X 10*3/uL (0.90-5.00); Lymphocytes % (A) 12.3 %; MCH 28.6 pg (27.0-32.0); MCHC 31.8 g/dL (32.0-37.0); Mean Platelet Volume 9.8 fL (9.5-12.2); Monocytes # (A) 0.53 X 10*3/uL (0.20-1.00); Monocytes % (A) 8.6 %; Neutrophils # (A) 4.61 X 10*3/uL (1.80-7.70); Neutrophils % (A) 74.4 %; Platelet Count 165 X 10*3/uL (140-440); WBC 6.19 X 10*3/uL (4.50-10.00)
[2021-05-23 21:38] LABS: African American GFR (CKD) 112.3 (60.0-200.0); Albumin 4.5 g/dL (3.80-4.90); Albumin/Globulin Ratio 2.37 (1.60-3.17); Anion Gap 12.1 mmol/L (4.00-12.00); BUN/Creat Ratio 24.29 Ratio (12.00-20.00); Calcium 8.4 mg/dL (8.7-10.3); Carbon Dioxide 24.9 mmol/L (21.6-31.8); Globulin 1.9 g/dL (1.6-3.3); Non-African American GFR(CKD) 96.9 (60.0-200.0); Potassium 4.2 mmol/L (3.5-5.5); Total Bilirubin 0.6 mg/dL (0.3-1.2); Total Protein 6.4 g/dL (6.2-8.2)
[2021-05-23 21:44] LABS: T4, Free (Free Thyroxine) 1.7 ng/dL (0.80-1.80)
== END | disposition home or self-care (01) ==
LOC: LABWHC1 08:59
PROVIDERS: ATTEND Psychiatry & Neurology Neurology
DX: G35 Multiple sclerosis (principal); N39.0 Urinary tract infection, site not specified; R53.1 Weakness; R53.83 Other fatigue
CPT/HCPCS: 36415; 80053; 81001; 82306; 82607; 84439; 84443; 85025; 87077; 87086; 87186

== ENCOUNTER → 2021-06-09 | Outpatient (CLI) | payer MEDICARE, BC ==
--- NOTE | 2021-06-09 10:54 | MR ---
EXAMINATION TYPE: MR brain wo con DATE OF EXAM: 06/09/2021 COMPARISON: . 10/12/2020 HISTORY: MS follow up, has gotten worse in the past year, weakness in legs, trouble walking. MS for 3 0 years. TECHNIQUE: Multiplanar, multisequence images of the brain and brainstem is performed without IV contrast. Unabl e to obtain venous access therefore examination was performed without contrast FINDINGS: T2 Lesions Present : Yes Approximate Number of Lesions: Numerous lesions are redemonstrated bilaterally totaling more than 50 within the cerebral hemisphere Locations Identified : Pericallosal, Periventricular, Juxtacortical, Infratentorial, Size of Reference Lesion(s): Right frontal centrum semioval bilaterally measures 9 mm left perry radiata measures 8.8 mm. Enhancing Lesion(s) Present: Not applicable T1 Hypointense Lesion(s) Present: Yes Change from Prior: Stable Diffusion weighted images demonstrate no evidence of a recent infarct or other diffusion abnormality. There is no worrisome extra-axial fluid collection. The ventricular system and cisternal spaces ar e normal in size and appearance. The brain volume is age appropriate. Midline structures demonstrate normal morphology. The craniocervical junction appears within normal limits. Post contrast images demonstrate no abnormal enhancement. The dural venous sinuses appear pa tent. The visualized sinuses are clear and the globes are intact. IMPRESSION: Stable features of multiple sclerosis.
== END | disposition home or self-care (01) ==
LOC: RADMRIMAIN 08:14
PROVIDERS: ATTEND Psychiatry & Neurology Neurology
DX: G35 Multiple sclerosis (principal)
CPT/HCPCS: 70551

== ENCOUNTER → 2021-10-17 | Outpatient (CLI) | payer MEDICARE, BC ==
[2021-10-17 15:07] LABS: Basophils # (A) 0.07 X 10*3/uL (0.00-0.10); Basophils % (A) 0.6 %; Eosinophils # (A) 0.08 X 10*3/uL (0.04-0.35); Eosinophils % (A) 0.7 %; HCT 36.7 % (37.2-46.3); HGB 11.3 g/dL (12.0-15.0); Lymphocytes # (A) 1.64 X 10*3/uL (0.90-5.00); Lymphocytes % (A) 13.7 %; MCHC 30.8 g/dL (32.0-37.0); MCV 87.6 fL (80.0-97.0); Mean Platelet Volume 9.7 fL (9.5-12.2); Monocytes # (A) 1.18 X 10*3/uL (0.20-1.00); Monocytes % (A) 9.9 %; Neutrophils # (A) 8.92 X 10*3/uL (1.80-7.70); Neutrophils % (A) 74.8 %; Platelet Count 489 X 10*3/uL (140-440); RBC 4.19 X 10*6/uL (4.10-5.20); RDW 13.2 % (11.5-14.5); WBC 11.93 X 10*3/uL (4.50-10.00)
[2021-10-17 15:45] LABS: African American GFR (CKD) 117.3 (60.0-200.0); Albumin 4.4 g/dL (3.8-4.9); Albumin/Globulin Ratio 1.63 (1.60-3.17); Anion Gap 13.2 mmol/L (10.00-18.00); BUN/Creat Ratio 23.17 Ratio (12.00-20.00); Blood Urea Nitrogen 13.9 mg/dL (9.0-27.0); Calcium 9.7 mg/dL (8.7-10.3); Carbon Dioxide 24.8 mmol/L (20.0-27.5); Globulin 2.7 g/dL (1.6-3.3); Non-African American GFR(CKD) 101.2 (60.0-200.0); Potassium 4.5 mmol/L (3.5-5.5); Total Bilirubin 0.3 mg/dL (0.30-1.20); Total Protein 7.1 g/dL (6.2-8.2); Uric Acid 4.2 mg/dL (2.9-7.7)
[2021-10-17 16:25] LABS: Erythrocyte Sedimentation Rate 79 mm/Hr (0-30)
[2021-10-17 19:55] LABS: Appearance,Urine Turbid (Clear); Color,Urine Dark Yellow (Yellow); Specific Gravity,Urine 1.014 (1.001-1.030)
[2021-10-17 20:08] LABS: Amorphous Sediment,Urine Present (None Seen); Bacteria,Urine None Seen /HPF (None Seen); Triple Phosphate Crystal,Urine Present (None Seen)
== END | disposition home or self-care (01) ==
LOC: LABWHC1 10:44
PROVIDERS: ATTEND Podiatrist
DX: N39.0 Urinary tract infection, site not specified (principal); M10.9 Gout, unspecified; L03.115 Cellulitis of right lower limb
CPT/HCPCS: 36415; 80053; 81001; 84550; 85025; 85652; 87086

== ENCOUNTER → 2022-01-02 | Outpatient (CLI) | payer MEDICARE, BC ==
--- NOTE | 2022-01-03 11:27 | MM ---
Reason for exam: screening (asymptomatic). Last mammogram was performed 2 years and 2 months ago. History: Patient is postmenopausal. Family history of premenopausal breast cancer in maternal grandmother at age 48. Cyst aspiration of the left breast, August 06, 2011. Physical Findings: A clinical breast exam by your physician is recommended on an annual basis and results should be correlated with mammographic findings. MG 3D Screening Mammo W/Cad Bilateral CC and MLO view(s) were taken. Prior study comparison: October 21, 2019, bilateral MG 3d screening mammo w/cad. April 12, 2019, left breast MG 3d diag mammo w/cad LT. The breast tissue is extremely dense which could obscure a lesion on mammography. Stable vascular calcifications. There is no discrete abnormality. No significant changes when compared with prior studies. ASSESSMENT: Benign, BI-RAD 2 RECOMMENDATION: Routine screening mammogram of both breasts in 1 year.
== END | disposition home or self-care (01) ==
LOC: RADMAMWWP 08:48
PROVIDERS: ATTEND Obstetrics & Gynecology
DX: Z12.31 Encounter for screening mammogram for malignant neoplasm of breast (principal); Z78.0 Asymptomatic menopausal state; Z80.3 Family history of malignant neoplasm of breast
CPT/HCPCS: 77063; 77067

== ENCOUNTER → 2022-05-21 | Outpatient (CLI) | payer MEDICARE, BC ==
[2022-05-21 14:40] LABS: HCT 41.8 % (37.2-46.3); HGB 13.5 g/dL (12.0-15.0); MCH 28.9 pg (27.0-32.0); MCHC 32.3 g/dL (32.0-37.0); MCV 89.5 fL (80.0-97.0); Mean Platelet Volume 9.3 fL (9.5-12.2); NRBC Per 100 WBC 0 /100 WBCS (0.0-0.0); Platelet Count 309 X 10*3/uL (140-440); RBC 4.67 X 10*6/uL (4.10-5.20); RDW 13.9 % (11.5-14.5); WBC 5.71 X 10*3/uL (4.50-10.00)
[2022-05-21 15:52] LABS: African American GFR (CKD) 105.1 (60.0-200.0); Albumin 4.9 g/dL (3.8-4.9); Albumin/Globulin Ratio 2.33 (1.60-3.17); Anion Gap 10.1 mmol/L (10.00-18.00); BUN/Creat Ratio 26.67 Ratio (12.00-20.00); Blood Urea Nitrogen 19.6 mg/dL (9.0-27.0); Calcium 9.7 mg/dL (8.7-10.3); Globulin 2.1 g/dL (1.6-3.3); Non-African American GFR(CKD) 90.7 (60.0-200.0); Potassium 4.3 mmol/L (3.5-5.5); T4, Free (Free Thyroxine) 1.39 ng/dL (0.800-1.800); Total Bilirubin 0.3 mg/dL (0.30-1.20)
== END | disposition home or self-care (01) ==
LOC: LABWHC1 10:25
PROVIDERS: ATTEND Family Medicine
DX: Z00.00 Encounter for general adult medical examination without abnormal findings (principal); G35 Multiple sclerosis
CPT/HCPCS: 36415; 80053; 82306; 82607; 84439; 84443; 85027

== ENCOUNTER → 2023-01-03 | Outpatient (CLI) | payer MEDICARE ==
--- NOTE | 2023-01-03 16:06 | BD ---
EXAMINATION TYPE: Axial Bone Density DATE OF EXAM: 01/03/2023 CLINICAL HISTORY: 57 years old Female. ICD-10 CODE: Z80.3 POST FRANZT SYMP Height: 66.5" Weight: 179.8 FRAX RISK QUESTIONS: Alcohol (3 or more units per day): No Family History (Parent hip fracture): No Glucocorticoids (More than 3mos): Yes, patient has MS, in 1996 (Ex: prednisone, prednisolone, methylprednisolone, dexamethasone, and hydrocortisone). History of Fracture in Adulthood: Yes, bilateral ankle fractures Secondary Osteoporosis: 1. Type 1 Diabetes: No 2. Hyperthyroidism: No 3. Menopause before 45: No 4. Malnutrition: No 5. Chronic liver disease: No Rheumatoid Arthritis: No Current Tobacco Use: No RISK FACTORS HISTORY OF: Hip Fracture (Right/Left): No Spine Fracture: No History of Wrist Fracture: No Surgery to Spine/Hip(right/left)/Wrist (right/left): No Family History of Osteoporosis: No Active: No Diet low in dairy products/other sources of calcium: No Postmenopausal woman: Yes Lost more than 2 inches in height since high school: No Frequent falls: Yes, due to MS Poor Health: Yes Hyperparathyroidism: No Adrenal Insufficiency: No MEDICATIONS: Prednisone or other steroids: Yes How Long: Since MS diagnosis in 1996 Thyroid Medications: Yes Which medication: Synthroid How Lon years Osteoporosis Medications: No Additional Medications: Steroids for MS, MS infusion 2x a year, synthroid, anti-anxiety and depressio n medication, vitamin D, elderberry Additional History: MS diagnosis 1996 EXAM MEASUREMENTS: Bone mineral densitometry was performed using the [employer] System. Bone mineral density as measured about the Lumbar spine is: ----- L1-L4(G/cm2): 1.048 T Score Values are as follows: ----- L1: -1.6 ----- L2: -1.0 ----- L3: -0.7 ----- L4: -1.2 ----- L1-L4: -1.1 Z Score Values are as follows: ----- L1: -1.1 ----- L2: -0.5 ----- L3: -0.2 ----- L4: -0.7 ----- L1-L4: -0.6 Bone mineral density has: decreased -8.5% since study of: 10/22/2017 Bone mineral density about the R hip (g/cm2): 0.846 Bone mineral density about the L hip (g/cm2): 0.793 T Score values are as follows: -----R Neck: -1.4 -----L Neck: -2.3 -----R Total: -1.3 -----L Total: -1.7 Z Score values are as follows: -----R Neck: -0.6 -----L Neck: -1.5 -----R Total: -0.9 -----L Total: -1.3 Bone mineral density has: decreased 11.8% since study of: 10/22/2017 FRAX%s: The graph provided illustrates a 16.7% chance for a major osteoporotic fx and a 2.7% chance f or the hips probability for fx in 10 years time. IMPRESSION: Osteopenia (T Score between -2.5 and -1). There is slightly increased risk of fracture and the patient may be considered for treatment. Re-Screen 2-5 years. NOTE: T-SCORE=SD OF THE YOUNG ADULT MEAN.
--- NOTE | 2023-01-06 08:51 | MM ---
Reason for Exam: Screening (asymptomatic). Last screening mammogram was performed 12 month(s) ago. Patient History: Menarche at age 11. First Full-Term at age 20. Postmenopausal. 08/06/2011, Cyst Aspiration on the Left side. Maternal grandmother had breast cancer, age 48. Risk Values: Mine 5 year model risk: 1.2%. NCI Lifetime model risk: 6.9%. Prior Study Comparison: 04/12/2019 Left Diagnostic Mammogram, [facility]. 10/21/2019 Bilateral Screening Mammogram, [facility]. 01/02/2022 Bilateral Screening Mammogram, [facility]. Tissue Density: The breast tissue is extremely dense which could obscure a lesion on mammography. Findings: Analyzed By CAD. There is no suspicious group of microcalcifications or new suspicious mass in either breast. Overall Assessment: Negative, BI-RAD 1 Management: Screening Mammogram of both breasts in 1 year. A clinical breast exam by your physician is recommended on an annual basis and results should be correlated with mammographic findings. [facility] will attempt to contact patient to return for supplemental views and ultrasound if indicated. Electronically signed and approved by: Thomas Mejia DO
== END | disposition home or self-care (01) ==
LOC: RADMAMWWP 07:55
PROVIDERS: ATTEND Obstetrics & Gynecology
DX: Z12.31 Encounter for screening mammogram for malignant neoplasm of breast (principal); M85.89 Other specified disorders of bone density and structure, multiple sites; G35 Multiple sclerosis; Z80.3 Family history of malignant neoplasm of breast; Z78.0 Asymptomatic menopausal state
CPT/HCPCS: 77063; 77067; 77080

== ENCOUNTER → 2023-01-03 | Outpatient (CLI) | payer MEDICARE ==
[2023-01-03 12:51] LABS: Appearance,Urine Clear (Clear); Bacteria,Urine Rare /hpf; Bilirubin,Urine Negative (Negative); Blood,Urine Negative (Negative); Color,Urine Light Yellow; Glucose,Urine (UA) Negative (Negative); Ketones,Urine Negative (Negative); Leukocyte Esterase,Urine Large (Negative); Mucus,Urine Rare /hpf; Nitrite,Urine Negative (Negative); PH, Urine 6.5 (5.0-8.0); Protein,Urine Negative (Negative); RBC,Urine 2 /hpf (0-5); Specific Gravity,Urine 1.008 (1.001-1.035); Squamous Epithelial Cell,Urine 4 /hpf (0-4); Urobilinogen,Urine <2.0 mg/dL (<2.0); WBC,Urine 2 /hpf (0-5)
[2023-01-03 15:31] LABS: Basophils # (A) 0.08 X 10*3/uL (0.00-0.10); Basophils % (A) 1.3 %; Eosinophils # (A) 0.12 X 10*3/uL (0.04-0.35); Eosinophils % (A) 1.9 %; HCT 40.9 % (37.2-46.3); HGB 13.2 g/dL (12.0-15.0); Immature Grans, Automated 0.5 %; Lymphocytes # (A) 1.33 X 10*3/uL (0.90-5.00); MCH 28.9 pg (27.0-32.0); MCHC 32.3 g/dL (32.0-37.0); MCV 89.7 fL (80.0-97.0); Mean Platelet Volume 9.4 fL (9.5-12.2); Monocytes # (A) 0.57 X 10*3/uL (0.20-1.00); NRBC Per 100 WBC 0 /100 WBCS (0.0-0.0); Neutrophils # (A) 4.21 X 10*3/uL (1.80-7.70); Neutrophils % (A) 66.3 %; Platelet Count 314 X 10*3/uL (140-440); RBC 4.56 X 10*6/uL (4.10-5.20); RDW 13.7 % (11.5-14.5); WBC 6.34 X 10*3/uL (4.50-10.00)
[2023-01-03 15:49] LABS: African American GFR (CKD) 94.2 (60.0-200.0); Albumin 4.7 g/dL (3.8-4.9); Albumin/Globulin Ratio 2.04 (1.60-3.17); Anion Gap 13.3 mmol/L (10.00-18.00); BUN/Creat Ratio 22.75 Ratio (12.00-20.00); Blood Urea Nitrogen 18.2 mg/dL (9.0-27.0); Calcium 9.7 mg/dL (8.7-10.3); Carbon Dioxide 24.7 mmol/L (20.0-27.5); Globulin 2.3 g/dL (1.6-3.3); Non-African American GFR(CKD) 81.3 (60.0-200.0); Potassium 4.6 mmol/L (3.5-5.5); Total Bilirubin 0.3 mg/dL (0.30-1.20)
== END | disposition home or self-care (01) ==
LOC: LABWHC1 08:38
PROVIDERS: ATTEND Psychiatry & Neurology Neurology
DX: G35 Multiple sclerosis (principal); Z79.899 Other long term (current) drug therapy
CPT/HCPCS: 36415; 80053; 81001; 85025; 87077; 87086; 87186

== ENCOUNTER → 2023-08-02 | Outpatient (CLI) | payer BC, MEDICARE ==
--- NOTE | 2023-08-02 14:21 | MR ---
EXAMINATION TYPE: MR brain wo/w con DATE OF EXAM: 08/02/2023 10:34 AM CLINICAL INDICATION:Female, 57 years old with history of G35 MULTIPLE SCLEROSIS; PHH, Weakness, MS re lapse. COMPARISON: 06/09/2021 TECHNIQUE: Multi planar, multi sequence imaging was performed through the brain including: T1, T2, In version recovery, susceptibility weighted imaging and gradient echo imaging and Diffusion weighted im aging. The patient was then given intravenous contrast and multi planar, T1 fat-saturation images wer e obtained. IV Contrast: 8.5 cc Gadavist FINDINGS: Scattered white matter changes. Overall findings similar changes are similar to prior 2020. No evidence for enhancement or diffusion restriction to suggest active demyelination. The kim-white junctions, ventricular system, basal cisterns appear unremarkable. Diffusion-weighted imaging shows no evidence of restricted diffusion to suggest acute/subacute infarct. Intracranial ar terial flow voids are maintained. Midline structures show no abnormality. . The susceptibility weight ed images do not reveal any evidence for micro-hemorrhage. After administration of gadolinium, no abn ormal enhancement is seen. The bone marrow signal is within normal limits. Paranasal sinuses and mastoid air cells: No significant paranasal sinus disease. Visualized orbits: Orbital contents are intact. IMPRESSION: 1. No evidence for active demyelination. Scattered white matter changes majority of which are orthogo nal to the ventricles are not significantly changed from 06/09/2021. 2. No evidence of intracranial mass, acute/subacute infarct, or abnormal enhancement.
== END | disposition home or self-care (01) ==
LOC: RADMRIMAIN 09:33
PROVIDERS: ATTEND Psychiatry & Neurology Neurology
DX: G35 Multiple sclerosis (principal); R90.82 White matter disease, unspecified
CPT/HCPCS: 70553; A9585

== ENCOUNTER → 2023-08-11 | Outpatient (CLI) | payer BC, MEDICARE ==
--- NOTE | 2023-08-11 11:26 | MR ---
"EXAMINATION TYPE: MR cervical spine wo/w con DATE OF EXAM: 08/11/2023 COMPARISON: None HISTORY: MS, Headaches TECHNIQUE: Multiplanar, multisequence images of the cervical spine is performed without and with IV contrast, ut ilizing 8.5 mL intravenous Gadavist FINDINGS: Exam is nearly nondiagnostic due to extreme motion artifact. Grossly alignment is near-anatomic and there is disc desiccation at all levels with degenerative disc disease C5-6 and C6-C7. Assessment of spinal cord for abnormal signal nondiagnostic due to artifact. At C2-C3 no obvious disc herniation or canal stenosis. At C3-C4 no obvious disc herniation, canal stenosis or foraminal encroachment. At C4-C5 no obvious disc herniation or canal stenosis. At C5-C6 there is a right paracentral and lateral disc herniation resulting in anterolateral compress ion of the spinal cord and right-sided foraminal encroachment. At C6-C7 there is broad-based central disc bulging greater paracentrally to the right. No spinal cord contact. Uncovertebral joint hypertrophy. At C7-T1 no obvious disc herniation or canal stenosis. IMPRESSION: 1. Nearly nondiagnostic exam due to extreme motion artifact. There is a moderate sized right paracent ral and lateral disc herniation C5-C6 with right-sided foraminal encroachment. This does result in mi ld right anterior compression of the spinal cord. 2. There is broad-based central and right paracentral disc bulging\\protrusion C6-C7 with no spinal co rd contact. 3. Assessment spinal cord nondiagnostic. EXAMINATION TYPE: MR thoracic spine wo/w con DATE OF EXAM: 08/11/2023 COMPARISON: None HISTORY: MS, Headaches CONTRAST: Standard multiplanar, multisequence MRI departmental protocol images were obtained without contrast a nd with 8.5 mL intravenous Gadavist gadolinium contrast. FINDINGS: Exam is limited due to motion artifact. There is a scoliotic curvature the spine with multilevel disc desiccation and mild degenerative disc disease. At T8-T9 there is a right paracentral disc herniation resulting in anterolateral compression of the s porfirio cord. At T12-L1 there is a left paracentral disc small herniation with no spinal cord contact. Remaining levels are limited due to motion but demonstrate no obvious disc herniation or canal stenos is. There is bilateral adrenal gland thickening greater on the left suggestive of hyperplasia. Assessment for abnormal signal in spinal cord is markedly limited. No obvious areas of abnormal signal. An area of compressive myelopathy at the T8-T9 level not excluded. IMPRESSION: 1. Markedly limited exam due to motion artifact. 2. At T8-T9 there is a right paracentral disc herniation with anterior compression of the spinal cord . Compressive myelopathy not excluded given limitation of exam. At T12-L1 there is left paracentral disc small herniation with no spinal cord contact. A [place] level critical message alert has been initiated for Donny James DO via the [employer] 0 | Critical Results System on 08/11/2023 11:08 AM. This message alert has been sent to Donny dubose DO via the preferences provided by the clinician for the receipt of Radiology Critical Findings. Rose essage ID [id number]."
== END | disposition home or self-care (01) ==
LOC: RADMRIMAIN 08:49
PROVIDERS: ATTEND Psychiatry & Neurology Neurology
DX: G35 Multiple sclerosis (principal); M50.222 Other cervical disc displacement at C5-C6 level; M50.323 Other cervical disc degeneration at C6-C7 level; M51.25 Other intervertebral disc displacement, thoracolumbar region
CPT/HCPCS: 72156; 72157; A9585

== ENCOUNTER → 2024-01-09 | Outpatient (CLI) | payer BC, MEDICARE ==
--- NOTE | 2024-01-12 08:35 | MM ---
Reason for Exam: Screening (asymptomatic). Last screening mammogram was performed 12 month(s) ago. Patient History: Menarche at age 11. First Full-Term at age 20. Postmenopausal. 08/06/2011, Cyst Aspiration on the Left side. Maternal grandmother had breast cancer, age 48. Risk Values: Mine 5 year model risk: 1.2%. NCI Lifetime model risk: 6.7%. Prior Study Comparison: 10/21/2019 Bilateral Screening Mammogram, [facility]. 01/02/2022 Bilateral Screening Mammogram, [facility]. 01/03/2023 Bilateral MG 3D screening mammo w/cad, [facility]. Tissue Density: The breasts are heterogeneously dense, which may obscure small masses. Findings: Analyzed By CAD. Right breast: There is no suspicious group of microcalcifications or new suspicious mass. Left breast: There is no suspicious group of microcalcifications or new suspicious mass. Overall Assessment: Negative, BI-RAD 1 Management: Screening Mammogram of both breasts in [address] [facility] will attempt to contact patient to return for supplemental views and ultrasound if indicated. Patient should continue monthly self-breast exams. A clinical breast exam by your physician is recommended on an annual basis. This exam should not preclude additional follow-up of suspicious palpable abnormalities. Note on Mine scores and lifetime risk: 1. A Mine score greater than 3% is considered moderate risk. If this is the case, consider specialist referral to assess eligibility for a risk reducing agent. 2. If overall lifetime risk for the development of breast cancer is 20% or higher, the patient may qualify for future screening with alternating mammogram and breast MRI. Electronically signed and approved by: Thomas Mejia DO
== END | disposition home or self-care (01) ==
LOC: RADMAMWWP 15:44
PROVIDERS: ATTEND Family Medicine
DX: Z12.31 Encounter for screening mammogram for malignant neoplasm of breast (principal); Z78.0 Asymptomatic menopausal state; Z80.3 Family history of malignant neoplasm of breast
CPT/HCPCS: 77063; 77067

== ENCOUNTER → 2024-03-12 | Outpatient (CLI) | payer BC, MEDICARE ==
[2024-03-12 16:27] LABS: Appearance,Urine Clear (Clear); Bacteria,Urine Rare /hpf; Bilirubin,Urine Negative (Negative); Blood,Urine Negative (Negative); Color,Urine Colorless; Glucose,Urine (UA) Negative (Negative); Ketones,Urine Negative (Negative); Leukocyte Esterase,Urine Moderate (Negative); Nitrite,Urine Negative (Negative); PH, Urine 6.5 (5.0-8.0); Protein,Urine Negative (Negative); Specific Gravity,Urine 1.002 (1.001-1.035); Squamous Epithelial Cell,Urine <1 /hpf (0-4); Urobilinogen,Urine <2.0 mg/dL (<2.0); WBC,Urine 1 /hpf (0-5)
[2024-03-13 02:01] LABS: Basophils % (A) 1.5 %; Eosinophils # (A) 0.17 X 10*3/uL (0.04-0.35); Eosinophils % (A) 2.6 %; HGB 13.5 g/dL (12.0-15.0); Lymphocytes # (A) 1.91 X 10*3/uL (0.90-5.00); Lymphocytes % (A) 29.2 %; MCH 28.1 pg (27.0-32.0); MCHC 31.4 g/dL (32.0-37.0); MCV 89.4 FL (80.0-97.0); Mean Platelet Volume 9.5 FL (9.5-12.2); Monocytes # (A) 0.67 X 10*3/uL (0.20-1.00); Monocytes % (A) 10.3 %; NRBC Per 100 WBC 0 X 10*3/uL (0.00-0.01); Neutrophils # (A) 3.67 X 10*3/uL (1.80-7.70); Neutrophils % (A) 56.2 %; Platelet Count 384 X 10*3/uL (140-440); RBC 4.81 X 10*6/uL (4.10-5.20); RDW 13.8 % (11.5-14.5); WBC 6.53 X 10*3/uL (4.50-10.00)
[2024-03-13 02:57] LABS: ALT 15 U/L (8-44); AST 19 U/L (13-35); Albumin 4.9 g/dL (3.8-4.9); Albumin/Globulin Ratio 2.13 Ratio (1.60-3.17); Alkaline Phosphatase 159 U/L (41-126); BUN/Creat Ratio 20.43 Ratio (12.00-20.00); Blood Urea Nitrogen 14.3 mg/dL (9.0-27.0); Calcium 10.6 mg/dL (8.7-10.3); Carbon Dioxide 25.7 mmol/L (21.6-31.8); Chloride 100 mmol/L (96-109); Globulin 2.3 g/dL (1.6-3.3); Glucose 94 mg/dL (70-110); Potassium 4.3 mmol/L (3.5-5.5); Sodium 138 mmol/L (135-145); T4, Free (Free Thyroxine) 1.46 ng/dL (0.80-1.80); Total Bilirubin <0.2 mg/dL (0.3-1.2); Total Protein 7.2 g/dL (6.2-8.2)
== END | disposition home or self-care (01) ==
LOC: LABWHC1 15:43
PROVIDERS: ATTEND Psychiatry & Neurology Neurology
DX: Z00.00 Encounter for general adult medical examination without abnormal findings (principal); G35 Multiple sclerosis; Z51.81 Encounter for therapeutic drug level monitoring; Z79.899 Other long term (current) drug therapy; N31.9 Neuromuscular dysfunction of bladder, unspecified
CPT/HCPCS: 36415; 80053; 81001; 82306; 82607; 84439; 84443; 85025

== ENCOUNTER → 2024-12-31 | Outpatient (CLI) | payer BC, MEDICARE ==
[2024-12-31 15:28] LABS: Appearance,Urine Turbid (Clear); Bilirubin,Urine Negative (Negative); Blood,Urine Small (Negative); Color,Urine Yellow (Yellow); Ketones,Urine Negative (Negative); Nitrite,Urine Positive (Negative); Specific Gravity,Urine 1.013 (1.001-1.030); Urobilinogen,Urine 0.2 E.U./DL
[2024-12-31 15:40] LABS: ALT 24 U/L (8-44); AST 20 U/L (13-35); Albumin 4.5 g/dL (3.8-4.9); Albumin/Globulin Ratio 2.37 Ratio (1.60-3.17); Alkaline Phosphatase 138 U/L (41-126); BUN/Creat Ratio 26.86 Ratio (12.00-20.00); Blood Urea Nitrogen 18.8 mg/dL (9.0-27.0); Calcium 9.6 mg/dL (8.7-10.3); Carbon Dioxide 23.4 mmol/L (21.6-31.8); Chloride 104 mmol/L (96-109); Globulin 1.9 g/dL (1.6-3.3); Glucose 100 mg/dL (70-110); Potassium 4.2 mmol/L (3.5-5.5); Sodium 141 mmol/L (135-145); Total Bilirubin 0.3 mg/dL (0.3-1.2); Total Protein 6.4 g/dL (6.2-8.2)
[2024-12-31 16:32] LABS: Bacteria,Urine 3+ (None Seen)
[2024-12-31 18:36] LABS: Basophils % (A) 1.1 %; Eosinophils # (A) 0.18 X 10*3/uL (0.04-0.35); HGB 13.5 g/dL (12.0-15.0); Lymphocytes # (A) 2.08 X 10*3/uL (0.90-5.00); Lymphocytes % (A) 22.8 %; MCH 28.8 pg (27.0-32.0); MCHC 32.1 g/dL (32.0-37.0); MCV 89.6 FL (80.0-97.0); Mean Platelet Volume 9.5 FL (9.5-12.2); Monocytes # (A) 0.78 X 10*3/uL (0.20-1.00); Monocytes % (A) 8.5 %; NRBC Per 100 WBC 0 X 10*3/uL (0.00-0.01); Neutrophils # (A) 5.97 X 10*3/uL (1.80-7.70); Neutrophils % (A) 65.4 %; Platelet Count 412 X 10*3/uL (140-440); RBC 4.69 X 10*6/uL (4.10-5.20); RDW 14.9 % (11.5-14.5); WBC 9.13 X 10*3/uL (4.50-10.00)
== END | disposition home or self-care (01) ==
LOC: LABWHC1 10:34
PROVIDERS: ATTEND Psychiatry & Neurology Neurology
DX: Z79.899 Other long term (current) drug therapy (principal)
CPT/HCPCS: 36415; 80053; 81001; 82306; 82607; 85025; 87077; 87086; 87186